=== PATIENT | female | born 1975 | race African-American/Black ===

== ENCOUNTER → 2017-01-07 | Outpatient (CLI) | payer BC ==
[~2017-01-07] MED LIST: REGADENOSON INJ 0.4 MG/5 ML DISP.SYRIN IV ONE
--- NOTE | 2017-01-07 21:00 | DRAGON STRESS TEST REPORT ---
ntravenous Lexiscan Cardiolite stress test using single photon emmision computerized tomography. Date of procedure: Ordering Provider: Indication: Chest pain, abnormal EKG, and preoperative cardiac risk assessment. Coronary risk factors: Age, and family history of coronary artery disease. Resting EKG: Sinus Rhythm. LVH with strain pattern. Possible diffuse ischemia. Stress EKG: No changes of ischemia. The patient had no chest pain or discomfort, and there were no arrhythmias seen. Reason for termination: Protocol. Conclusions: Normal EKG and hemodynamic response to IV Lexiscan. Nuclear data: At rest the patient was 13.54 given millicuries of technetium 99m sestamibi injected intravenously. As per protocol rest non gated SPECT images were obtained. Subsequently the patient was given intravenous Lexiscan at a dose of 0.4 mg in 5 mL intravenously, followed by flush with normal saline. Subsequently the stress dose of 42.7 millicuries of technetium 99m sestamibi was injected intravenously. As per protocol stress gated images were obtained. Nuclear interpretation: Review of images showed that there is bowel contamination artifact. There is a perfusion defect in the stress images which is mild involving the left ventricular apex, and this normalizes in the rest images. There is the basal inferior wall artifact causing a perfusion defect involving the inferior wall which is slightly more pronounced in the rest images compared with the stress images. But cannot exclude mild reversible ischemia of the basal inferior wall. Segments of the myocardium had normal perfusion at rest, and normal perfusion post stress with IV Lexiscan. All segments of the myocardium had normal thickening by gated study. There is probably mild global hypokinesis T. I D. ratio was abnormal at 1.26. Computer read rest, and stress left ventricular ejection fraction were 39 %, and 37 %, respectively. Conclusion: 1. There is mild scintigraphic evidence of Lexiscan induced myocardial ischemia involving the left ventricle apex and the basal inferior wall. 2. There is no scintigraphic evidence of myocardial infarction/scar. 3. Recommend echo for LVEF coorelation. Recommendations: 1.Aggressive medical treatment of coronary artery disease. 2.Cardiac catheterization if the patient continues to have chest pain especially in light of the abnormal EKG and abnormal T I D ratio, 3.Aggressive risk factor modification, and treating the underlying co- morbidities. 4. Recommend echocardiogram for LVEF correlation. [facility]
== END ==
LOC: RAD 07:42
PROVIDERS: ATTEND Specialist
DX: Z01.810 Encounter for preprocedural cardiovascular examination (principal); R07.9 Chest pain, unspecified; R94.31 Abnormal electrocardiogram [ECG] [EKG]
CPT/HCPCS: 93017; 78452; A9500; J2785; Q9969

== ENCOUNTER 2017-03-26 09:03 | Day surgery (SDC) | payer BC ==
[2017-03-24 09:49] LABS: HEMATOCRIT 36.8 % (36.0-47.0); HEMOGLOBIN 11.9 g/dL (12.0-15.5); HGB HCT DIFFERENCE -1.1; MEAN CORPUSCULAR HEMOGLOBIN 27.1 pg (27.0-33.4); MEAN CORPUSCULAR HGB CONC 32.4 g/dL (32.0-36.0); MEAN CORPUSCULAR VOLUME 84 fl (80-97); RED CELL DISTRIBUTION WIDTH 12.7 % (11.5-14.0); WHITE BLOOD COUNT 5.8 10^3/uL (4.0-10.5)
[2017-03-24 10:08] LABS: ANION GAP 12 (5-19); BLOOD UREA NITROGEN 13 mg/dL (7-20); CALCIUM 9.3 mg/dL (8.4-10.2); CARBON DIOXIDE 26 mmol/L (22-30); CHLORIDE 106 mmol/L (98-107); CREATININE RESULT 0.75 mg/dL (0.52-1.25); GLUCOSE 106 mg/dL (75-110); POTASSIUM 4.6 mmol/L (3.6-5.0); SODIUM 143.9 mmol/L (137-145)
--- NOTE | 2017-03-24 13:26 | EKG REPORT ---
SEVERITY:- ABNORMAL ECG - SINUS RHYTHM LVH WITH SECONDARY REPOLARIZATION ABNORMALITY REPOL ABNRM, PROBABLE ISCHEMIA, ANT-LAT LEADS BORDERLINE PROLONGED QT INTERVAL : Confirmed by: Mayur Caraballo MD 24-Mar-2017 13:24:55
[~2017-03-26 09:03] MED LIST changes: +ACETAMINOPHEN 325 MG TABLET PO PRN; +CEFAZOLIN 1 GM/D5W RTU 1 GM/50 ML RTUPB IV PRN; +LACTATED RINGERS 1000 ML IV PRN; +LIDOCAINE 0.5% INJ-PF (5 MG/ML) 50 ML SDV SUBCUT PRN; -REGADENOSON INJ 0.4 MG/5 ML DISP.SYRIN IV ONE
[2017-03-26] MEDS ORDERED: ROCURONIUM BROMIDE INJ 50 MG/5 ML VIAL IV ONE (09:40)
[2017-03-26] MEDS ORDERED: DEXAMETHASONE SOD PHOSPHATE INJ 4 MG/1 ML VIAL ONE (09:40)
[2017-03-26] MEDS ORDERED: GLYCOPYRROLATE INJ 0.4 MG/2 ML VIAL ONE (09:40)
[2017-03-26] MEDS ORDERED: NEOSTIGMINE METHYLSULFATE 10 MG/10 ML VIAL ONE (09:40)
[2017-03-26] MEDS ORDERED: METOCLOPRAMIDE HCL INJ/PF 10 MG/2 ML SDV ONE (09:40)
[2017-03-26] MEDS ORDERED: ONDANSETRON HCL INJ/PF 4 MG/2 ML SDV ONE ×3 (09:40→15:40)
[2017-03-26] MEDS ORDERED: SUCCINYLCHOLINE CHLORIDE INJ 200 MG/10 ML VIAL ONE (09:40)
[2017-03-26] MEDS ORDERED: BUPIVACAINE HCL 0.25 % INJ/PF (2.5 MG/1 ML) 30 ML VIAL ONE (10:26)
[2017-03-26] MEDS ORDERED: MIDAZOLAM 2 MG/2 ML INJ ONE (12:04)
[2017-03-26] MEDS ORDERED: HYDROMORPHONE HCL INJ/PF 2 MG/ML AMPULE ONE ×2 (12:04→16:24)
[2017-03-26] MEDS ORDERED: PROPOFOL INJ 200 MG/20 ML VIAL IV ONE (12:05)
[2017-03-26] MEDS ORDERED: FENTANYL CITRATE INJ/PF 250 MCG/5 ML AMPULE ONE (12:36)
[2017-03-26] MEDS ORDERED: PROMETHAZINE HCL INJ 25 MG/1 ML VIAL IV PRN ×2 (13:12)
[2017-03-26] MEDS ORDERED: FENTANYL CITRATE INJ/PF 100 MCG/2 ML AMPUL IV PRN ×3 (13:12)
[2017-03-26] MEDS ORDERED: OXYCODONE-ACETAMINOPHEN 5-325 MG TABLET PO PRN ×2 (13:12)
[2017-03-26] MEDS ORDERED: MORPHINE SULFATE 10 MG/ML INJ IV PRN (13:12)
[2017-03-26] MEDS ORDERED: MEPERIDINE HCL/PF INJ 25 MG/1 ML DISP.SYRIN IV PRN (13:12)
[2017-03-26] MEDS ORDERED: DIPHENHYDRAMINE HCL 50 MG/ML VIAL IV PRN (13:12)
--- NOTE | 2017-03-26 14:07 | Operative Report ---
Operative Report DATE OF SURGERY: 03/26/17 PREOPERATIVE DIAGNOSIS: Ventral hernia POSTOPERATIVE DIAGNOSIS: Ventral hernia OPERATION: Open ventral hernia repair with mesh SURGEON: MARGE WEEMS ANESTHESIA: GA TISSUE REMOVED OR ALTERED: Hernia sac COMPLICATIONS: None ESTIMATED BLOOD LOSS: minimal INTRAOPERATIVE FINDINGS: Two centimeter fascial defect just above the umbilicus with herniated the preperitoneal fat PROCEDURE: Informed consent was obtained. Patient was brought to the operating room and placed on the operating room table in the supine position. After satisfactory induction of general anesthesia patient's abdomen was prepped and draped in usual sterile fashion. The hernia laid about 2 cm above the umbilicus. A transverse incision was made overlying this region. The hernia sac was large, the size of a golf ball. It was dissected free from the surrounding structures. The hernia sac was opened entering the peritoneal cavity. Hernia sac was markedly thickened with herniated preperitoneal fat and portion of the falciform ligament. The hernia sac was excised and the portion that was formed with the falciform ligament was clamped divided and tied. The hernia sac was then closed with running Vicryl suture. A preperitoneal plane was then created circumferentially. The hernia defect measured just the larger than 2 cm in size. 6.6 cm Covidien composite parietex mesh was used. It was a placed into the preperitoneal space and sutured at 4 quadrants to the overlying fascia using mattressing Prolene sutures. Hemostasis appeared excellent. The mesh laid the flat with excellent coverage. The fascial defect was closed over the mesh using interrupted Ethibond sutures. The space was closed with interrupted Vicryl sutures. Skin was closed with deep dermal interrupted Vicryl sutures followed by running subcuticular Monocryl suture. Marcaine was injected at the operative site. Patient tolerated procedure well with no apparent complications and was taken to the recovery area in stable condition.
[2017-03-26] MEDS ORDERED: RINGERS SOLUTION,LACTATED 1,000 ML IV PRN (14:20)
[2017-03-26] MEDS ORDERED: ONDANSETRON HCL INJ/PF 4 MG/2 ML SDV IV PRN (14:20)
--- NOTE | 2017-03-26 14:20 | PDOC DISCHARGE SUMMARY ---
Discharge Summary (SDC) - Discharge Final Diagnosis: Ventral hernia Date of Surgery: 03/26/17 Discharge Date: 03/26/17 Condition: Good Treatment or Instructions: Open ventral hernia repair with mesh. May discharge patient home when met discharge criteria. Follow-up with me in 2 weeks. Stay active but avoid strenuous activity. May shower in 2 days. Prescriptions: Oxycodone HCl/Acetaminophen [Percocet 5-325 mg Tablet] 1 tab PO ASDIR PRN #25 tablet PRN Reason: Discharge Diet: As Tolerated Discharge Activity: Activity As Tolerated - Stay active but avoid strenuous activity. Report the Following to Your Physician Immediately: Fever over 101 Degrees, Unusual Bleeding, Redness, Drainage-Foul Smelling
[2017-03-26] MEDS: FENTANYL CITRATE INJ/PF 100 MCG/2 ML AMPUL ONE ×2 (14:37→15:05)
[2017-03-26] MEDS ORDERED: KETOROLAC TROMETHAMINE INJ/PF 30 MG/1 ML SDV ONE (16:40)
[2017-03-26] MEDS ORDERED: RINGERS SOLUTION,LACTATED 400 ML IV ONE (17:00)
[2017-03-26] MEDS ORDERED: GLUCAGON,HUMAN RECOMB 1 MG INJ SUBCUT PRN (17:34)
[2017-03-26] MEDS ORDERED: KETOROLAC TROMETHAMINE INJ/PF 30 MG/1 ML SDV IV PRN (17:34)
[2017-03-26] MEDS ORDERED: HYDROMORPHONE HCL INJ/PF 2 MG/ML AMPULE IV PRN (17:34)
[2017-03-26] MEDS ORDERED: DEXTROSE 40% GEL 15 GM TUBE PO PRN ×2 (17:34)
[2017-03-26] MEDS ORDERED: DEXTROSE 50%-WATER 25 GM/50 ML DISP.SYRIN IV PRN ×2 (17:34)
--- NOTE | 2017-03-26 17:41 | PDOC PROGRESS REPORT ---
Subjective Progress Note for:: 03/26/17 Subjective:: Patient had the pain central to the incision site that was difficult to control in the recovery room. However after Dilaudid and Toradol patient feels comfortable. She still has nausea. Physical Exam Vital Signs: Temp Pulse Resp BP Pulse Ox 98.5 F 66 12 129/56 H 97 03/26/17 17:33 03/26/17 17:33 03/26/17 17:33 03/26/17 17:33 03/26/17 17:33 Intake & Output 03/25/17 03/26/17 03/27/17 06:59 06:59 06:59 Intake Total 0 Output Total 0 Balance 0 Weight 90.72 kg 90.72 kg General appearance: PRESENT: no acute distress, cooperative Respiratory exam: PRESENT: clear to auscultation asad Cardiovascular exam: PRESENT: RRR GI/Abdominal exam: PRESENT: other - Soft, nondistended, tender mainly at the mid abdomen around her incision site. Results Laboratory Results: 03/24/17 08:56 03/24/17 08:56 Assessment & Plan - Diagnosis (1) Ventral hernia Is this a current diagnosis for this admission?: YesPlan: Status post open ventral hernia repair with mesh. With difficulty with pain control and postoperative nausea will plan to ring the patient into the hospital for observation overnight. If pain is under the good control and the patient's nausea has resolved, will plan to discharge the patient home in the morning.
[2017-03-26] MEDS ORDERED: PROMETHAZINE HCL INJ 50 MG/1 ML VIAL IM ONE (18:30)
[2017-03-26] MEDS: OXYCODONE-ACETAMINOPHEN 5-325 MG TABLET PO PRN (20:47)
[2017-03-26 21:31] LABS: ABSOLUTE BASOPHILS # (AUTO) 0.1 10^3/uL (0.0-0.2); ABSOLUTE MONOCYTES (AUTO) 0.1 10^3/uL (0.1-1.4); BASOPHILS % (AUTO) 0.5 % (0-2); EOSINOPHILS % (AUTO) 0.1 % (0-6); HEMATOCRIT 36.2 % (36.0-47.0); HEMOGLOBIN 11.8 g/dL (12.0-15.5); HGB HCT DIFFERENCE -0.8; LYMPHOCYTES % (AUTO) 7.8 % (13-45); MEAN CORPUSCULAR HEMOGLOBIN 26.9 pg (27.0-33.4); MEAN CORPUSCULAR HGB CONC 32.5 g/dL (32.0-36.0); MEAN CORPUSCULAR VOLUME 83 fl (80-97); MONOCYTES % (AUTO) 0.8 % (3-13); RED BLOOD COUNT 4.37 10^6/uL (3.72-5.28); RED CELL DISTRIBUTION WIDTH 12.6 % (11.5-14.0); SEGMENTED NEUTROPHILS % (AUTO) 90.8 % (42-78)
[2017-03-26 21:36] LABS: WHITE BLOOD COUNT 12.1 10^3/uL (4.0-10.5)
[2017-03-26] MEDS ORDERED: MAG HYDROX/AL HYDROX/SIMETH SUSP 30 ML UDCUP PO PRN (21:46)
[2017-03-26 21:50] LABS: BLOOD UREA NITROGEN 12 mg/dL (7-20); CALCIUM 9.7 mg/dL (8.4-10.2); CARBON DIOXIDE 26 mmol/L (22-30); CHLORIDE 105 mmol/L (98-107); GLUCOSE 135 mg/dL (75-110); POTASSIUM 4.5 mmol/L (3.6-5.0); SODIUM 143.6 mmol/L (137-145)
[2017-03-26 21:51] LABS: ALANINE AMINOTRANSFERASE 28 U/L (9-52); ALKALINE PHOSPHATASE 83 U/L (38-126); ANION GAP 13 (5-19); ASPARTATE AMINO TRANSFERASE 27 U/L (14-36); BILIRUBIN,DIRECT 0.3 mg/dL (0.0-0.4); BILIRUBIN,TOTAL 0.8 mg/dL (0.2-1.3); CREATINE KINASE 534 U/L (30-135); TOTAL PROTEIN 7.6 g/dL (6.3-8.2)
[2017-03-26] MEDS ORDERED: DEXTROSE 5%-NORMAL SALINE 1,000 ML IV PRN (21:51)
[2017-03-26] MEDS: FAMOTIDINE INJ/PF 20 MG/2 ML SDV IV SCH (21:56)
[2017-03-26] MEDS ORDERED: ASPIRIN 81 MG TABLET, ENT COATED PO SCH (22:00)
[2017-03-26 22:02] LABS: CREATINE KINASE MB 1.97 ng/mL (<4.55)
[2017-03-26 22:03] LABS: TROPONIN I < 0.012 ng/mL
--- NOTE | 2017-03-26 22:16 | PDOC CONSULTATION ---
Consultation Consult Date: 03/26/17 Attending physician:: LOPEZ NAVARRO Consult reason:: CHEST PAIN History of Present Illness Admission Date/PCP: LOPEZ MINAYA PA-C Patient complains of: CHEST PAIN History of Present Illness: SWATI HENLEY is a 41 year old -[place] female with basically an unremarkable past medical history, other than mild esophageal reflux disease, status post open ventral hernia repair earlier today by Dr. Diaz. Initial plans were for the patient to be discharged home. However, postoperative pain control became an issue and patient was placed under outpatient observation admission service by Dr. Diaz. Patient experienced approximately 30 minute episode of left-sided chest "tightness" postoperatively while at rest, shortly after being transferred from postanesthesia care unit to the floor. No radiation of the pain. Has had prior such episodes. Nothing made the pain increase. Mild associated nausea but no sweating or shortness of breath. Pain resolved spontaneously prior to my seeing her and has not recurred. Patient had similar such pain earlier this year and underwent an abnormal stress test in December of this year, with recommendations for aggressive risk factor modification, along with cardiac catheterization if continued to have chest pain. She subsequently underwent a negative heart catheterization February 18 at [facility]. Negative personal cardiac history, with no previous myocardial infarction, congestive heart failure or hypertension. No history of pulmonary embolus or DVT. No recent long trip with prolonged inactivity, or unusual lower extremity swelling or tenderness. Negative family history of coronary artery disease. No use of alcohol tobacco or illicit drugs. Patient has been discussed with patient's floor nurse. She is currently resting quietly, chest pain-free. Laboratory results are listed in [facility] and are reviewed, with repeat results pending. X-ray summary results are listed below, with full report(s) reviewed. . EKG's reviewed. And compared to prior tracing from the second of this month Social history/personal habits: . 5 children. Works as a certified personal trainer. Personal habits as noted above. Allergies/adverse reactions NKDA. Home medications none REVIEW OF SYSTEMS: Constitutional: No fever or chills. Eyes: Wears glasses. No current vision complaints. ENT: No swallowing problems or complaints. No hearing problems or complaints. Pulmonary: No current complaints. Cardiovascular: See history and present illness. Gastrointestinal: See history and present illness. Skin: No current complaints, including rashes. Hematologic: No unusual easy bruising or bleeding. Neurologic: No current complaints, including numbness or tingling. Musculoskeletal: No current complaints, including painful joints. Psychiatric: No current complaints, including anxiety or depression. Endocrine: No current complaints, including polyuria. Genitourinary: No current complaints, including dysuria. PHYSICAL EXAMINATION: 5 feet 11 inches tall. 90.7 kg. BMI 27.9 kg/m.Temperature 98.5. Pulse 71 and regular. Blood pressure 143/67. Respirations are 12 and unlabored. 97% saturation on room air. Slightly overweight otherwise well-nourished well-developed -[place] female appearing approximately her stated age. Pleasant awake alert and cooperative. Mildly anxious, but no agitation. is present at her side; patient approves. Patient's floor nurse Suzanne is present. Skin is warm and dry. No grossly obvious evidence of rash in areas of skin examined. No subcutaneous nodules palpated. ENT: Hearing grossly normal to normal conversation. Tongue midline on protrusion pink and slightly tacky. Eyes: No scleral icterus. Pupils equal and reactive to light at 4 mm. [place] conjunctivae. Neck is supple and nontender to gentle active range of motion and palpation. Midline trachea. No palpable thyroid nodule mass enlargement or tenderness. Lymphatic: No palpable cervical or clavicular nodes. Neck and lymphatic exams limited by patient body habitus. Psychiatric: Reasonable insight into acute and chronic medical issues. Oriented to time location and why here. Lungs: Auscultation reveals clear and equal breath sounds bilaterally. No use of accessory respiratory muscles. Cardiovascular: Heart regular rate and rhythm, without gallop murmur or rub. No carotid or abdominal aortic bruits. Difficult to evaluate for ankle or pedal edema, with ACE hose in place. palpable dorsalis pedis pulses. Abdomen:soft, with positive bowel sounds. Clean dry and intact supraumbilical dressing is in place. This is left in place. Extremities: Feet are warm and dry. No calf tenderness to compression. No grossly obvious visual evidence of calf swelling, although again examination is limited due to the ACE hose in place. Gentle manipulation of lower extremities fails to reveal any obvious evidence of injury or instability to knees hips or ankles. Neurologic: Moves upper extremities grossly normally. Patellar reflexes absent. Absent Babinski. Light touch is intact at toes. Dorsiflexion and plantarflexion of feet 5 / 5 and symmetric. Past Medical History Cardiac Medical History: Denies: Congestive Heart Failure, Coronary Artery Disease, DVT, Myocardial Infarction, Hyperlipidema, Hypertension, Pulmonary Embolism Pulmonary Medical History: Denies: Asthma, Bronchitis, Chronic Obstructive Pulmonary Disease (COPD), Pneumonia, Sleep Apnea EENT Medical History: Reports: Eyes - Glasses Denies: Ears, Throat Neurological Medical History: Denies: Hemorrhagic CVA, Ischemic CVA, Seizures Endocrine Medical History: Denies: Diabetes Mellitus Type 1, Diabetes Mellitus Type 2, Hyperthyroidism, Hypothyroidism Renal/ Medical History: Reports: None GI Medical History: Reports: Gastroesophageal Reflux Disease Denies: Cirrhosis, Hepatitis, Peptic Ulcer Disease Musculoskeltal Medical History: Denies: Arthritis Skin Medical History: Reports: None Psychiatric Medical History: Denies: Alcohol Dependency, Depression, General Anxiety Disorder, Substance Abuse, Tobacco Dependency Hematology: Denies: Anemia Infectious Medical History: Denies: Clostridium Difficile, Hepatitis B, Hepatitis C, Methicillin- Resistant Staph Aureus Past Surgical History Past Surgical History: Reports: Herniorrhaphy - Ventral hernia repair, 2016 Social History Information Source: Patient, [facility] Records - And patient's floor nurse Lives with: Spouse/Significant other Smoking Status: Never Smoker Frequency of Alcohol Use: None Drugs: None - Advance Directive Resuscitation Status: Full Code Surrogate healthcare decision maker:: Family History Family History: Reviewed & Not Pertinent Parental Family History Reviewed: Yes - father with vertigo. Mother with multiple health problems. Children Family History Reviewed: Yes - Healthy Sibling(s) Family History Reviewed.: Yes - Diabetic Medication/Allergy Home Medications: No Home Medications 03/26/17 Allergies/Adverse Reactions: No Known Allergies Allergy (Verified 03/26/17 09:14) Physical Exam Vital Signs: Temp Pulse Resp BP Pulse Ox 98.5 F 71 12 143/67 H 97 03/26/17 18:28 03/26/17 18:28 03/26/17 18:28 03/26/17 18:28 03/26/17 18:28 Intake & Output 03/25/17 03/26/17 03/27/17 00:59 00:59 00:59 Intake Total 6700 Output Total 215 Balance 6485 Weight 90.72 kg 90.72 kg Results Laboratory Results: 03/26/17 21:05 03/26/17 21:05 WBC 12.1 H D RBC 4.37 Hgb 11.8 L Hct 36.2 MCV 83 MCH 26.9 L MCHC 32.5 RDW 12.6 Plt Count 217 Seg Neutrophils % 90.8 H Lymphocytes % 7.8 L Monocytes % 0.8 L Eosinophils % 0.1 Basophils % 0.5 Absolute Neutrophils 11.0 H Absolute Lymphocytes 1.0 Absolute Monocytes 0.1 Absolute Eosinophils 0.0 Absolute Basophils 0.1 Impressions: Chest X-Ray 03/26/17 00:00 IMPRESSION: NO ACUTE RADIOGRAPHIC FINDING IN THE CHEST. Assessment & Plan - Diagnosis (1) DVT prophylaxis Is this a current diagnosis for this admission?: YesPlan: Mechanical prophylaxis in place from surgeons. Discussed with on-call surgicalist, Dr. Navarro, who agrees with my plans for prophylactic subcutaneous Lovenox. (2) History of ventral hernia repair Is this a current diagnosis for this admission?: Yes (3) Abnormal EKG Is this a current diagnosis for this admission?: YesPlan: Stable from March 2. Repeat in the morning. (4) Chest pain Qualifiers: Chest pain type: unspecified Qualified Code(s): R07.9 - Chest pain, unspecified Is this a current diagnosis for this admission?: YesPlan: Likely not significant, but will proceed with chest pain protocol. Patient understands to notify staff should chest pain recur. Serial troponin's . Repeat EKG. lipid panel. Cath report requested from [facility]. Impression and plans were discussed with patient, , and sales commissions analyst surgicalist, all of whom concur. Time spent in evaluation and management of patient: 63 minutes.
[2017-03-26] MEDS ORDERED: ASPIRIN 81 MG TABLET, ENT COATED PO ONE (22:30)
[2017-03-27] MEDS: OXYCODONE-ACETAMINOPHEN 5-325 MG TABLET PO PRN ×4 (00:55→13:32)
[2017-03-27] MEDS ORDERED: LANSOPRAZOLE 30 MG TAB.RAP.DR PO SCH (06:00)
[2017-03-27 07:50] LABS: CHOLESTEROL 188.09 mg/dL (0-200); Direct HDL 39 mg/dL (>40); TRIGLYCERIDES 66 mg/dL (<150)
[2017-03-27 08:01] LABS: DIRECT LDL 142 mg/dL (<100)
--- NOTE | 2017-03-27 08:14 | EKG REPORT ---
SEVERITY:- ABNORMAL ECG - SINUS RHYTHM LVH WITH SECONDARY REPOLARIZATION ABNORMALITY REPOL ABNRM, PROBABLE ISCHEMIA, ANT-LAT LEADS : Confirmed by: Mayur Caraballo MD 27-Mar-2017 08:12:49
--- NOTE | 2017-03-27 08:14 | EKG REPORT ---
SEVERITY:- ABNORMAL ECG - SINUS RHYTHM LVH WITH SECONDARY REPOLARIZATION ABNORMALITY REPOL ABNRM, PROBABLE ISCHEMIA, DIFFUSE LEADS : Confirmed by: Mayur Caraballo MD 27-Mar-2017 08:13:09
--- NOTE | 2017-03-27 08:14 | EKG REPORT ---
SEVERITY:- ABNORMAL ECG - SINUS RHYTHM LVH WITH SECONDARY REPOLARIZATION ABNORMALITY ST DEPRESSION, CONSIDER ISCHEMIA, ANT-LAT LDS : Confirmed by: Mayur Caraballo MD 27-Mar-2017 08:12:59
[2017-03-27] MEDS: FAMOTIDINE INJ/PF 20 MG/2 ML SDV IV SCH (09:07)
--- NOTE | 2017-03-27 09:46 | PDOC PROGRESS REPORT ---
Subjective Progress Note for:: 03/27/17 Subjective:: Feels much better today. Abdominal pain is mild. She has had no further episode of left-sided chest pain that she experienced last night. She is hungry. Physical Exam Vital Signs: Temp Pulse Resp BP Pulse Ox 97.4 F 58 L 18 132/68 H 100 03/27/17 07:54 03/27/17 07:54 03/27/17 07:54 03/27/17 07:54 03/27/17 07:54 Intake & Output 03/26/17 03/27/17 03/28/17 06:59 06:59 06:59 Intake Total 8020 Output Total 215 Balance 7805 Weight 90.2 kg General appearance: PRESENT: no acute distress, cooperative Respiratory exam: PRESENT: clear to auscultation asad Cardiovascular exam: PRESENT: RRR GI/Abdominal exam: PRESENT: other - Soft, nondistended, minimal tenderness. Results Laboratory Results: 03/26/17 21:05 03/26/17 21:05 03/26/17 03/26/17 03/27/17 21:05 21:05 07:03 WBC 12.1 H D RBC 4.37 Hgb 11.8 L Hct 36.2 MCV 83 MCH 26.9 L MCHC 32.5 RDW 12.6 Plt Count 217 Seg Neutrophils % 90.8 H Lymphocytes % 7.8 L Monocytes % 0.8 L Eosinophils % 0.1 Basophils % 0.5 Absolute Neutrophils 11.0 H Absolute Lymphocytes 1.0 Absolute Monocytes 0.1 Absolute Eosinophils 0.0 Absolute Basophils 0.1 Sodium 143.6 Potassium 4.5 Chloride 105 Carbon Dioxide 26 Anion Gap 13 BUN 12 Creatinine 0.80 Est GFR ( Amer) > 60 Est GFR (Non-Af Amer) > 60 Glucose 135 H Calcium 9.7 Total Bilirubin 0.8 AST 27 ALT 28 Alkaline Phosphatase 83 Total Protein 7.6 Albumin 4.0 Triglycerides 66 Cholesterol 188.09 LDL Cholesterol Direct 142 H VLDL Cholesterol 13.0 HDL Cholesterol 39 L 03/26/17 03/26/17 03/27/17 21:05 21:05 02:13 Creatine Kinase 534 H CK-MB (CK-2) 1.97 Troponin I < 0.012 < 0.012 03/27/17 07:03 Creatine Kinase CK-MB (CK-2) Troponin I < 0.012 Impressions: Chest X-Ray 03/26/17 00:00 IMPRESSION: NO ACUTE RADIOGRAPHIC FINDING IN THE CHEST. Assessment & Plan - Diagnosis (1) Ventral hernia Is this a current diagnosis for this admission?: Yes (2) History of ventral hernia repair Is this a current diagnosis for this admission?: YesPlan: Patient doing much better this morning with good pain control. Exam looks very good. Pending completion of cardiac workup for her chest pain from last night. Her cardiac enzymes are negative. Will discharge patient home when cardiology has cleared her.
[2017-03-27] MEDS ORDERED: ENOXAPARIN SODIUM INJ 40 MG/0.4 ML DISP.SYRIN SUBCUT SCH (10:00)
[2017-03-27] MEDS ORDERED: DOCUSATE SODIUM 100 MG CAPSULE PO SCH (10:00)
--- NOTE | 2017-03-27 10:29 | PDOC PROGRESS REPORT ---
Subjective Progress Note for:: 03/27/17 Subjective:: The patient was seen earlier today on rounds. Abdominal pain is much better controlled. The patient denies any nausea, vomiting, diarrhea, shortness of breath, dizziness, chest pain, heart palpitations, fevers, or chills. The patient has remained afebrile. Blood pressures have been in a good range. When prompted the patient voices no other concerns at this time. Review of systems: The rest of the review of systems is negative. Physical Exam Vital Signs: Temp Pulse Resp BP Pulse Ox 97.4 F 58 L 18 132/68 H 100 03/27/17 07:54 03/27/17 07:54 03/27/17 07:54 03/27/17 07:54 03/27/17 07:54 Intake & Output 03/25/17 03/26/17 03/27/17 23:59 23:59 23:59 Intake Total 6820 1400 Output Total 215 Balance 6605 1400 Weight 90.72 kg 90.2 kg General appearance: PRESENT: no acute distress, cooperative, well-developed, well-nourished Head exam: PRESENT: atraumatic, normocephalic Eye exam: PRESENT: conjunctiva pink, EOMI, PERRLA. ABSENT: scleral icterus Ear exam: PRESENT: normal external ear exam Mouth exam: PRESENT: moist, tongue midline Neck exam: ABSENT: carotid bruit, JVD, lymphadenopathy, thyromegaly Respiratory exam: PRESENT: clear to auscultation asad. ABSENT: rales, rhonchi, wheezes Cardiovascular exam: PRESENT: RRR. ABSENT: diastolic murmur, rubs, systolic murmur Pulses: PRESENT: normal dorsalis pedis pul Vascular exam: PRESENT: normal capillary refill GI/Abdominal exam: PRESENT: other - Postsurgical Rectal exam: PRESENT: deferred Extremities exam: PRESENT: full ROM. ABSENT: calf tenderness, clubbing, pedal edema Neurological exam: PRESENT: alert, awake, oriented to person, oriented to place , oriented to time, oriented to situation, CN II-XII grossly intact. ABSENT: motor sensory deficit Psychiatric exam: PRESENT: appropriate affect, normal mood. ABSENT: homicidal ideation, suicidal ideation Skin exam: PRESENT: dry, intact, warm. ABSENT: cyanosis, rash Results Laboratory Results: 03/26/17 21:05 03/26/17 21:05 03/26/17 03/26/17 03/27/17 21:05 21:05 07:03 WBC 12.1 H D RBC 4.37 Hgb 11.8 L Hct 36.2 MCV 83 MCH 26.9 L MCHC 32.5 RDW 12.6 Plt Count 217 Seg Neutrophils % 90.8 H Lymphocytes % 7.8 L Monocytes % 0.8 L Eosinophils % 0.1 Basophils % 0.5 Absolute Neutrophils 11.0 H Absolute Lymphocytes 1.0 Absolute Monocytes 0.1 Absolute Eosinophils 0.0 Absolute Basophils 0.1 Sodium 143.6 Potassium 4.5 Chloride 105 Carbon Dioxide 26 Anion Gap 13 BUN 12 Creatinine 0.80 Est GFR ( Amer) > 60 Est GFR (Non-Af Amer) > 60 Glucose 135 H Calcium 9.7 Total Bilirubin 0.8 AST 27 ALT 28 Alkaline Phosphatase 83 Total Protein 7.6 Albumin 4.0 Triglycerides 66 Cholesterol 188.09 LDL Cholesterol Direct 142 H VLDL Cholesterol 13.0 HDL Cholesterol 39 L 03/26/17 03/26/17 03/27/17 21:05 21:05 02:13 Creatine Kinase 534 H CK-MB (CK-2) 1.97 Troponin I < 0.012 < 0.012 03/27/17 07:03 Creatine Kinase CK-MB (CK-2) Troponin I < 0.012 Impressions: Chest X-Ray 03/26/17 00:00 IMPRESSION: NO ACUTE RADIOGRAPHIC FINDING IN THE CHEST. Assessment & Plan - Diagnosis (1) Chest pain Qualifiers: Chest pain type: unspecified Qualified Code(s): R07.9 - Chest pain, unspecified Is this a current diagnosis for this admission?: YesPlan: The patient was observed in a continues telemetry unit, serial cardiac enzymes were obtained which were nonsuggestive. The patient's EKG revealed no acute changes and the patient had no events on playground monitor. Patient had no further replication of symptoms. Patient has had a normal heart catheterization in the past 60 days. Case was discussed by the surgicalist with the patient's sterile processing manager. The patient is clear for discharge from a hospitalist perspective. (2) DVT prophylaxis Is this a current diagnosis for this admission?: Yes (3) History of ventral hernia repair Is this a current diagnosis for this admission?: YesPlan: Management as per surgery - Time Time Spent with patient: 25-34 minutes Medications reviewed and adjusted accordingly: Yes Anticipated discharge: Home Disposition: The patient can be discharged from a hospitalist perspective. Will sign off on the patient at this time. Have discussed the case with the surgicalist. And as always the hospitalists would like to thank the surgicalist for allowing us to participate in the care of this patient
[2017-03-27 12:11] LABS: APPEARANCE,URINE CLEAR; BILIRUBIN,URINE NEGATIVE (NEGATIVE); GLUCOSE, URINE NEGATIVE (NEGATIVE); KETONES,URINE NEGATIVE (NEGATIVE); LEUKOCYTE ESTERASE,URINE TRACE (NEGATIVE); NITRITE,URINE NEGATIVE (NEGATIVE); PROTEIN,URINE NEGATIVE (NEGATIVE); URINE SPECIFIC GRAVITY 1.005; UROBILINOGEN,URINE NEGATIVE mg/dL (<2.0)
[2017-03-27 13:43] VITALS: BP 118/59
== END 2017-03-27 15:58 | disposition home or self-care (01) ==
LOC: OROUT 09:03 → 4N 19:11 → OROUT 03-27 15:58
PROVIDERS: ATTEND Surgery
PROC: 0WUF0JZ Supplement Abdominal Wall with Synthetic Substitute, Open Approach (ICD-10-PCS; principal; 2017-03-26 11:00)
DX: K43.9 Ventral hernia without obstruction or gangrene (principal); R07.89 Other chest pain; T81.89XA Other complications of procedures, not elsewhere classified, initial encounter; Y83.8 Other surgical procedures as the cause of abnormal reaction of the patient, or of later complication, without mention of misadventure at the time of the procedure; Y92.530 Ambulatory surgery center as the place of occurrence of the external cause; K21.9 Gastro-esophageal reflux disease without esophagitis; R94.31 Abnormal electrocardiogram [ECG] [EKG]
CPT/HCPCS: 93005 ×3; 36415 ×2; 82553; 82550; 85025; 85027; 81025; 80048; 80053; 81001; 84484; 85379; 80061; 88302 ×2; 71010; 94799; 93010 ×3; 49560; 49568; C1781; J2250; J0690; J3490 ×2; J1100; J3010 ×2; J1885; J2765; J1650; J1170; J2550; J0330; J2405 ×2; J7120; J2704; S0028 ×2; 752

== ENCOUNTER → 2017-04-27 | Outpatient (CLI) | payer BC ==
[2017-04-27 14:45] LABS: ABSOLUTE EOSINOPHILS # (AUTO) 0.1 10^3/uL (0.0-0.6); ABSOLUTE LYMPHOCYTES (AUTO) 2.7 10^3/uL (0.5-4.7); ABSOLUTE MONOCYTES (AUTO) 0.6 10^3/uL (0.1-1.4); ABSOLUTE NEUT (AUTO) 2.9 10^3/uL (1.7-8.2); BASOPHILS % (AUTO) 0.6 % (0-2); EOSINOPHILS % (AUTO) 1.7 % (0-6); HEMATOCRIT 39.2 % (36.0-47.0); HEMOGLOBIN 12.7 g/dL (12.0-15.5); HGB HCT DIFFERENCE -1.1; LYMPHOCYTES % (AUTO) 42.2 % (13-45); MEAN CORPUSCULAR HEMOGLOBIN 26.9 pg (27.0-33.4); MEAN CORPUSCULAR HGB CONC 32.5 g/dL (32.0-36.0); MEAN CORPUSCULAR VOLUME 83 fl (80-97); MONOCYTES % (AUTO) 9.8 % (3-13); RED BLOOD COUNT 4.73 10^6/uL (3.72-5.28); RED CELL DISTRIBUTION WIDTH 12.8 % (11.5-14.0); SEGMENTED NEUTROPHILS % (AUTO) 45.7 % (42-78); WHITE BLOOD COUNT 6.3 10^3/uL (4.0-10.5)
[2017-04-27 15:05] LABS: ANION GAP 14 (5-19); BLOOD UREA NITROGEN 11 mg/dL (7-20); CALCIUM 9.9 mg/dL (8.4-10.2); CARBON DIOXIDE 21 mmol/L (22-30); CHLORIDE 106 mmol/L (98-107); GLUCOSE 99 mg/dL (75-110); POTASSIUM 4.7 mmol/L (3.6-5.0)
== END ==
LOC: OD 14:04
PROVIDERS: ATTEND Surgery
DX: R10.9 Unspecified abdominal pain (principal)
CPT/HCPCS: 36415; 80048; 85025

== ENCOUNTER → 2017-04-30 | Outpatient (CLI) | payer BC ==
--- NOTE | 2017-04-30 09:15 | RADIOLOGY REPORT (SQ) ---
EXAM DESCRIPTION: CT ABDOMEN WITH IV ORAL CONT COMPLETED DATE/TIME: 04/30/2017 8:16 am REASON FOR STUDY: UNSPECIFIED ABD PAIN (R10.9) R10.9 UNSPECIFIED ABDOMINAL PAIN COMPARISON: None. TECHNIQUE: CT scan of the abdomen performed with intravenous and with oral contrast using helical sc anning technique with dynamic intravenous contrast injection. Images reviewed with lung, soft tissue, and bone windows. Reconstructed coronal and sagittal MPR images reviewed. Delayed images for evaluat ion of the urinary system also acquired and evaluated. All images stored on PACS. All CT scanners at this facility use dose modulation, iterative reconstruc tion, and/or weight based dosing when appropriate to reduce radiation dose to as low as reasonably ac hievable (ALARA). [facility]: Dose Right [facility]: CareDose [facility]: Dose Right [facility]: Teradose 4D [facility]: InLive Interactive CONTRAST TYPE AND DOSE: 98mL Isovue 370- low osmolar. RENAL FUNCTION: None required. The patient is less than 50 years old. RADIATION DOSE: 18.96 mGy. LIMITATIONS: None. FINDINGS: LOWER CHEST: No significant findings. No nodules or infiltrates. LIVER: Normal size. No masses or dilated ducts. There is mild fatty infiltration of the liver. SPLEEN: Normal size. No focal lesions. PANCREAS: No masses. No significant calcifications. No adjacent inflammation or peripancreatic fluid collections. Pancreatic duct not dilated. GALLBLADDER: No identified stones by CT criteria. No inflammatory changes to suggest cholecystitis. ADRENAL GLANDS: No significant masses or asymmetry. RIGHT KIDNEY AND URETER: No solid masses. No significant calcifications. No hydronephrosis or hyd roureter. LEFT KIDNEY AND URETER: No solid masses. No significant calcifications. No hydronephrosis or hydr oureter. AORTA AND VESSELS: No aneurysm. No dissection. Renal arteries, SMA, celiac without stenosis. RETROPERITONEUM: No retroperitoneal adenopathy, hemorrhage or masses. BOWEL AND PERITONEAL CAVITY: No masses or inflammatory changes. No free fluid or peritoneal masses. APPENDIX: Not identified ABDOMINAL WALL: There is increased soft tissue density at the level of the umbilicus with some minima l edematous or inflammatory changes in the adjacent subcutaneous fat. A small fluid collection is id entified in the abdominal wall adjacent to the umbilicus measuring 4.2 x 1.3 cm in diameter which may only be related to postsurgical changes however the possibility of an infectious process should be c onsidered. BONES: No significant or acute findings. OTHER: No other significant finding. IMPRESSION: Increased soft tissue density at the level of the umbilicus with some minimal edematous or inflammatory changes in the adjacent subcutaneous fat. A small fluid collection is identified in the abdominal wall adjacent to the umbilicus as noted above. While this may only be related to posts urgical changes, the possibility of an infectious process should be considered. Clinical correlation is recommended. Other findings as noted above TECHNICAL DOCUMENTATION: JOB ID: [id number] Quality ID # [id number]: Final reports with documentation of one or more dose reduction techniques (e.g., Au tomated exposure control, adjustment of the mA and/or kV according to patient size, use of iterative reconstruction technique) 2010 [employer]- All Rights Reserved
== END ==
LOC: RAD 07:31
PROVIDERS: ATTEND Surgery
DX: R10.9 Unspecified abdominal pain (principal)
CPT/HCPCS: 74160

== ENCOUNTER → 2018-11-02 | Outpatient (CLI) | payer BC ==
--- NOTE | 2018-11-02 21:10 | XCELERA REPORT ---
[address] [address] Transthoracic Echocardiogram Report Name: SWATI HENLEY Age: 42 yrs Gender: Female : 1975 Patient Status: Preadmit Patient Location: RAD Study Date: 11/02/2018 03:36 PM Procedure: A two-dimensional transthoracic echocardiogram with color flow and Doppler was performed. The study was technically limited with all images being suboptimal in quality. Reason For Study: CP History: Chest pain. Ordering Physician: FANTA COLON Performed By: Kiersten Celeste Interpretation Summary The left ventricle is normal in size. There is mild to moderate concentric left ventricular hypertrophy. LV EF is > than 65% Left ventricular systolic function is normal. Doppler measurements suggest normal left ventricular diastolic function The left ventricular wall motion is normal. There is no thrombus. The right ventricle is normal in size and function. The right atrium is normal. The left atrial size is normal. There is no evidence of mitral valve prolapse. There is no vegetation seen on the mitral valve. There is no mitral valve stenosis. There is a trace amount of mitral regurgitation There is no aortic valvular vegetation. There is no aortic valve stenosis There is no LVOT obstruction. No aortic regurgitation is present. There is no tricuspid stenosis. No tricuspid regurgitation. Unable to calculate RVSP due lack of TR jet. There is no pulmonic valvular stenosis. There is no pulmonic valvular regurgitation. There is no pericardial effusion. MMode/2D Measurements & Calculations RVDd: 2.8 cm LVIDd: 4.9 cm FS: 41.2 % Ao root diam: 2.8 cm IVSd: 1.3 cm LVIDs: 2.9 cm EDV(Teich): 114.6 ml Ao root area: 6.3 cm2 LVPWd: 1.1 cm ESV(Teich): 32.2 ml EF(Teich): 71.9 % Doppler Measurements & Calculations MV E max jaden: MV dec slope: Ao V2 max: LV V1 max P.6 cm/sec 137.8 cm/sec 8.7 mmHg MV A max jaden: 353.2 cm/sec2 Ao max PG: LV V1 max: 49.7 cm/sec MV dec time: 0.15 sec7.6 mmHg 147.7 cm/sec MV E/A: 1.0 PA V2 max: 123.0 cm/sec PA max P.1 mmHg Left Ventricle The left ventricle is normal in size. There is mild to moderate concentric left ventricular hypertrophy. LV EF is > than 65%. Left ventricular systolic function is normal. Doppler measurements suggest normal left ventricular diastolic function. The left ventricular wall motion is normal. There is no thrombus. Right Ventricle The right ventricle is normal in size and function. Atria The right atrium is normal. The left atrial size is normal. Mitral Valve There is no evidence of mitral valve prolapse. There is no vegetation seen on the mitral valve. There is no mitral valve stenosis. There is a trace amount of mitral regurgitation. Aortic Valve There is no aortic valvular vegetation. There is no aortic valve stenosis. There is no LVOT obstruction. No aortic regurgitation is present. Tricuspid Valve There is no tricuspid stenosis. No tricuspid regurgitation. Unable to calculate RVSP due lack of TR jet. Pulmonic Valve There is no pulmonic valvular stenosis. There is no pulmonic valvular regurgitation. Great Vessels The aortic root is normal size. Effusions There is no pericardial effusion. : FANTA COLON > Fanta Colon
== END ==
LOC: RAD 15:49
PROVIDERS: ATTEND Specialist
DX: R07.9 Chest pain, unspecified (principal)
CPT/HCPCS: 93306

== ENCOUNTER → 2018-11-03 | Outpatient (CLI) | payer BC ==
[~2018-11-03] MED LIST changes: -ACETAMINOPHEN 325 MG TABLET PO PRN; -CEFAZOLIN 1 GM/D5W RTU 1 GM/50 ML RTUPB IV PRN; -LACTATED RINGERS 1000 ML IV PRN; -LIDOCAINE 0.5% INJ-PF (5 MG/ML) 50 ML SDV SUBCUT PRN; +REGADENOSON INJ 0.4 MG/5 ML DISP.SYRIN IV ONE
--- NOTE | 2018-11-05 20:40 | DRAGON STRESS TEST REPORT ---
Intravenous Lexiscan Cardiolite stress test using single photon emmision computerized tomography. Date of procedure: 11/03/2018 Ordering Provider: Dr. Fanta Villalobos. Patient's status: Out Patient. Indication: Abnormal EKG:. Coronary risk factors: Age. Resting EKG: Sinus Rhythm. LVH with strain pattern. Cannot exclude diffuse ischemia secondary to T wave inversion diffusely. Stress EKG:[ No changes of ischemia. Reason for termination: Protocol. Conclusions: Normal EKG and hemodynamic response to IV Lexiscan. Nuclear data: At rest the patient was given 15.63 millicuries of technetium 99m sestamibi injected intravenously. As per protocol rest non gated SPECT images were obtained. Subsequently the patient was given intravenous Lexiscan at a dose of 0.4 mg in 5 mL intravenously, followed by flush with normal saline. Subsequently the stress dose of 38.9 millicuries of technetium 99m sestamibi was injected intravenously. As per protocol stress gated images were obtained. Nuclear interpretation: Review of images showed that all segments of the myocardium had normal perfusion at rest, and normal perfusion post stress with IV Lexiscan. All segments of the myocardium had normal motion, contraction, and thickening by gated study. T. I D. ratio was abnormal at 1.26. Visually the T I D ratio is normal. There is no transient ischemic calcification of the left ventricle. Computer read rest, and stress left ventricular ejection fraction were 49 %, and %, 43 respectively. Visually both the stress and rest ejection fractions were normal , and greater than 55%. Conclusion: 1. There is no scintigraphic evidence of Lexiscan induced myocardial ischemia. 2. There is no scintigraphic evidence of myocardial infarction/scar. Recommendations: 1. Check echo cardiogram for LV ejection fraction correlation. 2.Aggressive risk factor modification, and treating the underlying co- morbidities. [facility]
== END ==
LOC: RAD 07:55
PROVIDERS: ATTEND Specialist
DX: R07.9 Chest pain, unspecified (principal)
CPT/HCPCS: 93017; 78452; A9500; J2785; Q9969

== ENCOUNTER 2019-06-01 19:44 | Emergency (ER) | payer OTHER, BC ==
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
[2019-06-01 21:14] LABS: APPEARANCE,URINE SLIGHTLY-CLOUDY; BILIRUBIN,URINE NEGATIVE (NEGATIVE); COLOR,URINE YELLOW; GLUCOSE, URINE NEGATIVE (NEGATIVE); KETONES,URINE NEGATIVE (NEGATIVE); LEUKOCYTE ESTERASE,URINE TRACE (NEGATIVE); NITRITE,URINE NEGATIVE (NEGATIVE); PROTEIN,URINE NEGATIVE (NEGATIVE); URINE SPECIFIC GRAVITY 1.018; UROBILINOGEN,URINE NEGATIVE mg/dL (<2.0)
[2019-06-01] MEDS ORDERED: ONDANSETRON HCL INJ/PF 4 MG/2 ML SDV IV ONE (22:05)
[2019-06-01] MEDS ORDERED: HYDROMORPHONE HCL INJ/PF 2 MG/ML AMPULE IV ONE (22:05)
[2019-06-01] MEDS ORDERED: LORAZEPAM INJ 2 MG/1 ML VIAL IV ONE (22:05)
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
[2019-06-01] MEDS ORDERED: KETOROLAC TROMETHAMINE INJ/PF 30 MG/1 ML SDV IV ONE (23:24)
[2019-06-02] MEDS ORDERED: ONDANSETRON HCL INJ/PF 4 MG/2 ML SDV IV ONE (00:15)
[2019-06-02 00:33] VITALS: BP 114/66
[2019-06-02] MEDS ORDERED: METOCLOPRAMIDE HCL INJ/PF 10 MG/2 ML SDV IM ONE (00:51)
[2019-06-02] MEDS ORDERED: ONDANSETRON ODT 4 MG TAB (6 TAB/ER DISP) PO PRN (00:51)
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
== END 2019-06-02 01:10 | disposition home or self-care (01) ==
LOC: ER 19:44
DX: G89.29 Other chronic pain (principal); M54.9 Dorsalgia, unspecified
CPT/HCPCS: 96376; 99284; 96374; 96375; 81025; 81001; 72148; J1885; J2765; J1170; J2060; J2405 ×2

== ENCOUNTER 2019-09-01 18:53 | Emergency (ER) | payer BC, OTHER ==
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
[2019-09-01 19:34] LABS: APPEARANCE,URINE CLEAR; BILIRUBIN,URINE NEGATIVE (NEGATIVE); COLOR,URINE YELLOW; GLUCOSE, URINE NEGATIVE (NEGATIVE); KETONES,URINE NEGATIVE (NEGATIVE); LEUKOCYTE ESTERASE,URINE NEGATIVE (NEGATIVE); NITRITE,URINE NEGATIVE (NEGATIVE); PROTEIN,URINE NEGATIVE (NEGATIVE); URINE SPECIFIC GRAVITY 1.028
[2019-09-01] MEDS ORDERED: KETOROLAC TROMETHAMINE 60 MG/2 ML SDV IM ONE (21:02)
--- NOTE | 2019-09-01 21:36 | RADIOLOGY REPORT (SQ) ---
CT ABDOMEN PELVIS WITHOUT IV CONTRAST EXAM DATE: 09/01/2019 9:00 PM CDT HISTORY: Right flank pain. COMPARISON: 04/30/2017 TECHNIQUE: CT scan of the abdomen and pelvis was performed without IV contrast. This exam was performed according to our departmental dose-optimization program, which includes automated exposure control, adjustment of the mA and/or kV according to patient size and/or use of iterative reconstruction technique. FINDINGS: The lung bases are clear. No pleural or pericardial effusions. No hiatal hernia. There is a 6 mm stone in the region of the proximal right ureter with mild right-sided inflammatory changes. No definite hydronephrosis. There is a 3.8 cm right ovarian cystic lesion. The liver, spleen, pancreas, gallbladder, and adrenal glands are normal. No small bowel obstruction. The appendix is normal. No evidence of acute diverticulitis. No adenopathy, free fluid, or free air is identified. The aorta is normal caliber. The osseous structures are intact. IMPRESSION: 1. 6 mm stone in the region of the proximal right ureter with mild right-sided inflammatory changes. 2. 3.8 cm probably benign right ovarian cyst. Recommend follow-up pelvic US in 6-12 weeks. Reference: J Am Cornelius Radiol 2013;10:675-681
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
[2019-09-01] MEDS ORDERED: ONDANSETRON 4 MG TAB.RAPDIS PO ONE (21:55)
[2019-09-01] MEDS ORDERED: TAMSULOSIN HCL 0.4 MG CAP.SR.24H PO ONE (21:55)
[2019-09-01] MEDS ORDERED: OXYCODONE-ACETAMINOPHEN 5-325 MG TABLET PO ONE (21:55)
[2019-09-01 22:09] VITALS: BP 142/78
== END 2019-09-01 22:10 | disposition home or self-care (01) ==
LOC: ER 18:53
DX: N20.1 Calculus of ureter (principal); N83.201 Unspecified ovarian cyst, right side; R10.9 Unspecified abdominal pain; R11.2 Nausea with vomiting, unspecified; M54.5 Low back pain; G89.29 Other chronic pain
CPT/HCPCS: 99284; 96372; 81025; 81001; 74176; J1885; S0119

== ENCOUNTER → 2020-07-26 | Outpatient (CLI) | payer BC ==
[2020-07-26 15:57] LABS: ABSOLUTE EOSINOPHILS # (AUTO) 0.1 10^3/uL (0.0-0.6); ABSOLUTE LYMPHOCYTES (AUTO) 2.5 10^3/uL (0.5-4.7); ABSOLUTE MONOCYTES (AUTO) 0.5 10^3/uL (0.1-1.4); ABSOLUTE NEUT (AUTO) 3.5 10^3/uL (1.7-8.2); BASOPHILS % (AUTO) 0.4 % (0-2); EOSINOPHILS % (AUTO) 1.4 % (0-6); HEMATOCRIT 37.8 % (36.0-47.0); HEMOGLOBIN 12.7 g/dL (12.0-15.5); LYMPHOCYTES % (AUTO) 37.1 % (13-45); MEAN CORPUSCULAR HEMOGLOBIN 27.8 pg (27.0-33.4); MEAN CORPUSCULAR HGB CONC 33.5 g/dL (32.0-36.0); MEAN CORPUSCULAR VOLUME 83 fl (80-97); PLATELET COUNT 223 10^3/uL (150-450); RED BLOOD COUNT 4.56 10^6/uL (3.72-5.28); RED CELL DISTRIBUTION WIDTH 12.3 % (11.5-14.0); SEGMENTED NEUTROPHILS % (AUTO) 53.1 % (42-78); TOTAL CELLS COUNTED % (AUTO) 100 %; WHITE BLOOD COUNT 6.7 10^3/uL (4.0-10.5)
[2020-07-26 16:16] LABS: ANION GAP 12 (5-19); BLOOD UREA NITROGEN 11 mg/dL (7-20); CARBON DIOXIDE 23 mmol/L (22-30); CHLORIDE 104 mmol/L (98-107); GLUCOSE 124 mg/dL (75-110); POTASSIUM 4.8 mmol/L (3.6-5.0)
[2020-07-26 16:22] LABS: INTERNATIONAL RATION (INR) 1.02; PROTHROMBIN TIME 13.6 SEC (11.4-15.4)
[2020-07-26 16:23] LABS: PARTIAL THROMBOPLASTIN TIME 28.3 SEC (23.5-35.8)
== END ==
LOC: OD 14:53
PROVIDERS: ATTEND Specialist
DX: E78.5 Hyperlipidemia, unspecified (principal); R94.31 Abnormal electrocardiogram [ECG] [EKG]; R07.9 Chest pain, unspecified; K21.9 Gastro-esophageal reflux disease without esophagitis; R01.1 Cardiac murmur, unspecified; I34.0 Nonrheumatic mitral (valve) insufficiency; Z79.899 Other long term (current) drug therapy
CPT/HCPCS: 36415; 80051; 82565; 82947; 83735; 84520; 85025; 85610; 85730

== ENCOUNTER 2020-12-09 06:54 | Emergency (ER) | payer BC ==
[2020-12-09] MEDS ORDERED: MORPHINE SULFATE 10 MG/ML INJ IV ONE ×2 (07:45→15:05)
[2020-12-09] MEDS ORDERED: FAMOTIDINE INJ/PF 20 MG/2 ML SDV IV ONE (07:45)
[2020-12-09] MEDS ORDERED: ONDANSETRON HCL INJ/PF 4 MG/2 ML SDV IV ONE ×2 (07:45→15:05)
[2020-12-09] MEDS ORDERED: NORMAL SALINE 1000 ML 1,000 ML IV ONE ×2 (07:45→15:05)
[2020-12-09 07:49] LABS: ABSOLUTE EOSINOPHILS # (AUTO) 0.1 10^3/uL (0.0-0.6); ABSOLUTE LYMPHOCYTES (AUTO) 2.1 10^3/uL (0.5-4.7); ABSOLUTE MONOCYTES (AUTO) 0.6 10^3/uL (0.1-1.4); ABSOLUTE NEUT (AUTO) 4.3 10^3/uL (1.7-8.2); BASOPHILS % (AUTO) 0.5 % (0-2); EOSINOPHILS % (AUTO) 1.2 % (0-6); HEMATOCRIT 38.2 % (36.0-47.0); HEMOGLOBIN 12.5 g/dL (12.0-15.5); LYMPHOCYTES % (AUTO) 29.3 % (13-45); MEAN CORPUSCULAR HEMOGLOBIN 26.9 pg (27.0-33.4); MEAN CORPUSCULAR HGB CONC 32.8 g/dL (32.0-36.0); MEAN CORPUSCULAR VOLUME 82 fl (80-97); MONOCYTES % (AUTO) 8.6 % (3-13); PLATELET COUNT 204 10^3/uL (150-450); RED BLOOD COUNT 4.66 10^6/uL (3.72-5.28); RED CELL DISTRIBUTION WIDTH 12.8 % (11.5-14.0); SEGMENTED NEUTROPHILS % (AUTO) 60.4 % (42-78); TOTAL CELLS COUNTED % (AUTO) 100 %; WHITE BLOOD COUNT 7.1 10^3/uL (4.0-10.5)
[2020-12-09 08:02] LABS: ALBUMIN 4.2 g/dL (3.5-5.0); ALKALINE PHOSPHATASE 80 U/L (38-126); ANION GAP 6 (5-19); ASPARTATE AMINO TRANSFERASE 24 U/L (14-36); BILIRUBIN,DIRECT 0.1 mg/dL (0.0-0.4); BLOOD UREA NITROGEN 12 mg/dL (7-20); CALCIUM 10.2 mg/dL (8.4-10.2); CARBON DIOXIDE 30 mmol/L (22-30); CHLORIDE 101 mmol/L (98-107); GLUCOSE 133 mg/dL (75-110); POTASSIUM 4.4 mmol/L (3.6-5.0); TOTAL PROTEIN 7.5 g/dL (6.3-8.2)
--- NOTE | 2020-12-09 08:20 | ER Document Report ---
Entered by JASON YIP SCRIBE 12/09/20 0736 Acting as scribe for:ASHER FAJARDO MD ED GI/ - General Chief Complaint: Abdominal Pain Stated Complaint: ABDOMINAL PAIN, VOMITING/NAUSEA Time Seen by Provider: 12/09/20 07:35 Primary Care Provider: LOPEZ MINAYA PA-C [Primary Care Provider] - Follow up as needed Mode of Arrival: Ambulatory Information source: Patient Notes: This 44 year old female patient presents to the ED today with complaints of periumbilical abdominal pain that started around 1000 yesterday morning. Patient notes associated nausea, vomiting, fatigue, and weakness. She reports a prior ventral hernia repair in 03/2017. Denies fever or diarrhea. Last bowel movement was x2 days ago, which is unusual for her. 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 Patient is currently on her menstrual period. TRAVEL OUTSIDE OF THE [place] IN LAST 30 DAYS: No - Related Data Allergies/Adverse Reactions: No Known Allergies Allergy (Verified 06/01/19 19:51) Home Medications: metoprolol 100mg qd Past Medical History - General Information source: Patient, [facility] Records - Social History Smoking Status: Never Smoker Cigarette use (# per day): No Chew tobacco use (# tins/day): No Smoking Education Provided: No Frequency of alcohol use: None Drug Abuse: None Lives with: Spouse/Significant other Family History: Reviewed & Not Pertinent Patient has suicidal ideation: No Patient has homicidal ideation: No - Past Medical History Cardiac Medical History: Reports: Hx Hypertension Renal/ Medical History: Reports: Hx Kidney Stones GI Medical History: Reports: Hx Gastroesophageal Reflux Disease Musculoskeletal Medical History: Reports Hx Musculoskeletal Deformity, Reports Hx Musculoskeletal Trauma Past Surgical History: Reports: Hx Abdominal Surgery, Hx Umbilical Hernia - Ventral hernia repair, 03/26/2017 - Immunizations Immunizations up to date: Yes Hx Diphtheria, Pertussis, Tetanus Vaccination: Yes Review of Systems - Review of Systems Constitutional: See HPI, Weakness, Other - Fatigue. denies: Fever EENT: No symptoms reported Cardiovascular: No symptoms reported Respiratory: No symptoms reported Gastrointestinal: See HPI, Abdominal pain, Nausea, Vomiting, Constipation, Last bowel movement - x2 days ago. denies: Diarrhea Genitourinary: No symptoms reported Female Genitourinary: No symptoms reported, Last menstrual period - now Musculoskeletal: No symptoms reported Skin: No symptoms reported Hematologic/Lymphatic: No symptoms reported Neurological/Psychological: No symptoms reported -: Yes All other systems reviewed and negative Physical Exam - Vital signs Vitals: Temp Pulse Resp BP Pulse Ox 97.9 F 55 L 16 129/66 H 100 12/09/20 07:00 12/09/20 07:00 12/09/20 07:00 12/09/20 07:00 12/09/20 07:00 - General General appearance: Other - Appears uncomfortable In distress: None - HEENT Head: Normocephalic, Atraumatic Eyes: Normal Extraocular movements intact: Yes Pupils: PERRL Neck: Normal, Supple - Respiratory Respiratory status: No respiratory distress Chest status: Nontender Breath sounds: Normal Chest palpation: Normal - Cardiovascular Rhythm: Regular Heart sounds: Normal auscultation Murmur: No - Abdominal Inspection: Normal Distension: No distension Tenderness: Tender - Tenderness to palpation mostly in the epigastrium. There is some RUQ tenderness. Organomegaly: No organomegaly Notes: Bowel sounds are present, but sound hollow. - Back Back: Normal, Nontender - Extremities General upper extremity: Normal inspection General lower extremity: Normal inspection. No: Edema - Neurological Neuro grossly intact: Yes Orientation: AAOx4 [place] Coma Scale Eye Opening: Spontaneous [place] Coma Scale Verbal: Oriented [place] Coma Scale Motor: Obeys Commands [place] Coma Scale Total: 15 - Psychological Associated symptoms: Normal affect, Normal mood - Skin Skin Temperature: Warm Skin Moisture: Dry Skin Color: Normal Course - Re-evaluation Re-evalutation: 12/09/20 15:06 The patient's acute abdominal series did not show any abnormalities other than moderate amount of stool. CBC Chem-12 and lipase are unremarkable. Urinalysis shows a a lot of blood, but the patient is on her menstrual period. There is no leukocyte esterase. Patient was given enema and did have a small amount of stool. It did not alter her discomfort. She was also given a bottle of mag citrate to drink which she later vomited back up. On reexam she had considerable epigastric tenderness after vomiting the mag citrate. She was given a dose of viscous lidocaine 15 ml with 60 mg of Maalox. This did not seem to alter her discomfort at all. Due to the inability to determine and explain why she is having such discomfort, and the amount of vascular calcification seen on her plain film, a CT scan of the abdomen pelvis with oral and IV contrast will be done. 12/09/20 16:14 When I asked the nurse how the patient was doing after receiving the pain medication nausea medicine, she states that she was still throwing up. I ordered Reglan IV. She is trying to drink the oral contrast. The patient was evaluated during the global COVID-19 pandemic and that diagnosis was suspected/considered upon their initial presentation. Their evaluation, treatment and testing was consistent with current guidelines for patients who present with complaints or symptoms that may be related to COVID-19. - Vital Signs Vital signs: Temp Pulse Resp BP Pulse Ox 97.9 F 55 L 16 129/66 H 100 12/09/20 07:04 12/09/20 07:00 12/09/20 07:00 12/09/20 07:00 12/09/20 07:00 - Laboratory Results Result Diagrams: 12/09/20 07:28 12/09/20 07:28 Laboratory Results Interpreted: 12/09/20 12/09/20 12/09/20 07:28 07:28 08:30 MCH 26.9 L Sodium 136.7 L Glucose 133 H Urine Protein 30 H Urine Blood LARGE H Urine Urobilinogen 4.0 H Ur Leukocyte Esterase TRACE H Urine Ascorbic Acid 40 H Critical Laboratory Results Reviewed: No Critical Results - Radiology Results Radiology Results Interpreted: 12/09/20 11:59 Abdominal ultrasound unremarkable. Acute abdominal series suggest constipation otherwise unremarkable. Critical Radiology Results Reviewed: No Critical Results - Transfer of Care Care transferred to following provider: Dr. Chairez Notes: 12/09/20 17:34 Patient history, physical, lab results, ultrasound and x-rays, response or lack thereof to treatment so far was reviewed. Patient is currently drinking contrast for a contrasted CT scan of the abdomen and pelvis. Patient care is turned over to Dr. Wells with disposition decisions dependent on the CT results. Discharge - Discharge Clinical Impression: Abdominal pain Qualifiers: Abdominal location: periumbilical Qualified Code(s): R10.33 - Periumbilical pain Vomiting Qualifiers: Vomiting type: unspecified Vomiting Intractability: non-intractable Nausea presence: with nausea Qualified Code(s): R11.2 - Nausea with vomiting, unspecified Condition: Stable Disposition: OTHER Referrals: LOPEZ MINAYA PA-C [Primary Care Provider] - Follow up as needed I personally performed the services described in the documentation, reviewed and edited the documentation which was dictated to the scribe in my presence, and it accurately records my words and actions.
[2020-12-09 08:53] LABS: APPEARANCE,URINE SLIGHTLY-CLOUDY; BILIRUBIN,URINE NEGATIVE (NEGATIVE); COLOR,URINE AMBER; GLUCOSE, URINE NEGATIVE (NEGATIVE); KETONES,URINE NEGATIVE (NEGATIVE); LEUKOCYTE ESTERASE,URINE TRACE (NEGATIVE); NITRITE,URINE NEGATIVE (NEGATIVE); PROTEIN,URINE 30 mg/dL (NEGATIVE)
--- NOTE | 2020-12-09 10:31 | RADIOLOGY REPORT (SQ) ---
EXAM DESCRIPTION: U/S ABDOMEN COMPLETE W/O DOP IMAGES COMPLETED DATE/TIME: 12/09/2020 10:15 am REASON FOR STUDY: epigastric, RUQ pain COMPARISON: 09/01/2019 TECHNIQUE: Dynamic and static grayscale images acquired of the abdomen and recorded on PACS. Additio nal selected color Doppler and spectral images recorded. Note: Study does not meet criteria for a complete doppler/duplex scan LIMITATIONS: None. FINDINGS: PANCREAS: No masses. Visualized pancreatic duct normal caliber. LIVER: Echotexture is coarse with increased echogenicity consistent with fatty infiltration. LIVER VASCULATURE: Normal directional flow of the main portal vein and hepatic veins. GALLBLADDER: No stones. Normal wall thickness. No pericholecystic fluid. ULTRASOUND-DETECTED SOUSA'S SIGN: Negative. INTRAHEPATIC DUCTS AND COMMON DUCT: CBD and intrahepatic ducts normal caliber. No filling defects. INFERIOR VENA CAVA: Normal flow. AORTA: No aneurysm. RIGHT KIDNEY: Normal size. Normal echogenicity. No solid or suspicious masses. No hydronephrosis. No calcifications. LEFT KIDNEY: Normal size. Normal echogenicity. No solid or suspicious masses. No hydronephrosis. No calcifications. SPLEEN:Normal size. No solid masses. PERITONEAL AND PLEURAL SPACES: No ascites or effusions. OTHER: Focused evaluation of the supraumbilical superficial soft tissues is unremarkable. IMPRESSION: FATTY LIVER. NO OTHER SIGNIFICANT FINDING. TECHNICAL DOCUMENTATION: JOB ID: [id number] 2010 [employer]- All Rights Reserved Reading location - IP/workstation name: [email or web address]
[2020-12-09] MEDS ORDERED: MINERAL OIL 30 ML UDCUP PR ONE (11:30)
[2020-12-09] MEDS ORDERED: MAGNESIUM CITRATE 296 ML BOTTLE PO ONE (11:30)
--- NOTE | 2020-12-09 11:38 | RADIOLOGY REPORT (SQ) ---
EXAM DESCRIPTION: ACUTE ABDOMEN SERIES IMAGES COMPLETED DATE/TIME: 12/09/2020 11:06 am REASON FOR STUDY: mid abd pain w/ N V COMPARISON: CT abdomen pelvis 09/01/2019, 04/30/2017 NUMBER OF VIEWS: Three views. TECHNIQUE: Frontal chest, supine abdomen and upright/decubitus abdomen radiographic images acquired. LIMITATIONS: None. FINDINGS: CHEST: Lungs clear of infiltrates. No pleural effusion. No pneumothorax. Borderline car diomegaly. FREE AIR: None. No abnormal gas collections. BOWEL GAS PATTERN: Nonobstructive pattern. No dilated loops or air fluid levels. CALCIFICATIONS: There are multiple retroperitoneal and pelvic phleboliths unchanged from CT 9. HARDWARE: None in the abdomen. SOFT TISSUES: No gross mass or suggestion of organomegaly. BONES: No acute fracture. No worrisome bone lesions. OTHER: No other significant finding. IMPRESSION: NO RADIOGRAPHIC EVIDENCE FOR ACUTE ABDOMINAL DISEASE. TECHNICAL DOCUMENTATION: JOB ID: [id number] 2010 [employer]- All Rights Reserved Reading location - IP/workstation name: [id number]
[2020-12-09] MEDS ORDERED: LIDOCAINE 2% VISCOUS SOLN 15 ML UDCUP PO ONE (14:08)
[2020-12-09] MEDS ORDERED: MAG HYDROX/AL HYDROX/SIMETH SUSP 30 ML UDCUP PO ONE (14:08)
[2020-12-09] MEDS ORDERED: METOCLOPRAMIDE HCL INJ/PF 10 MG/2 ML SDV IV ONE (16:12)
[2020-12-09] MEDS ORDERED: DIPHENHYDRAMINE HCL 50 MG/ML VIAL IV ONE (17:01)
[2020-12-09] MEDS ORDERED: CHLORPROMAZINE HCL INJ 25 MG/1 ML AMPULE IV ONE (17:01)
--- NOTE | 2020-12-09 19:02 | RADIOLOGY REPORT (SQ) ---
EXAM DESCRIPTION: CT ABD/PELVIS WITH IV ORAL IMAGES COMPLETED DATE/TIME: 12/09/2020 6:37 pm REASON FOR STUDY: Epigastric and periumbilical abdominal pain COMPARISON: CT abdomen pelvis 09/01/2019, 04/30/2017 TECHNIQUE: CT scan of the abdomen and pelvis performed using helical scanning technique with dynamic intravenous contrast injection. No oral contrast. Images reviewed with lung, soft tissue, and bone windows. Reconstructed coronal and sagittal MPR images reviewed. Delayed images for evaluation of the urinary system also acquired. All images stored on PACS. All CT scanners at this facility use dose modulation, iterative reconstruction, and/or weight based d osing when appropriate to reduce radiation dose to as low as reasonably achievable (ALARA). [facility]: Dose Right [facility]: CareDose [facility]: Dose Right [facility]: Teradose 4D [facility]: Behalf CONTRAST TYPE AND DOSE: contrast/concentration: Isovue 350.00 mmol/ml; Total Contrast Delivered: 100 .0 ml; Total Saline Delivered: 34.3 ml RENAL FUNCTION: Creatinine 0.9 RADIATION DOSE: CT Rad equipment meets quality standard of care and radiation dose reduction techniq ues were employed. CTDIvol: 9.8 - 13.8 mGy. DLP: 1371 mGy-cm.. LIMITATIONS: None. FINDINGS: LOWER CHEST: No significant findings. No nodules or infiltrates. LIVER: Normal size. No masses. No dilated ducts. SPLEEN: Normal size. No focal lesions. PANCREAS: No masses. No significant calcifications. No adjacent inflammation or peripancreatic fluid collections. Pancreatic duct not dilated. GALLBLADDER: No identified stones by CT criteria. No inflammatory changes to suggest cholecystitis. ADRENAL GLANDS: No significant masses or asymmetry. RIGHT KIDNEY AND URETER: No solid masses. No significant calcifications. No hydronephrosis or hyd roureter. LEFT KIDNEY AND URETER: No solid masses. No significant calcifications. No hydronephrosis or hydr oureter. AORTA AND VESSELS: No aneurysm. No dissection. Renal arteries, SMA, celiac without stenosis. RETROPERITONEUM: No retroperitoneal adenopathy, hemorrhage or masses. BOWEL AND PERITONEAL CAVITY: No masses or inflammatory changes. No free fluid or peritoneal masses. APPENDIX: Normal. PELVIS: There is a moderate amount of water density free pelvic fluid in the cul-de-sac, best shown o n axial images 73-79 and sagittal image 44. Uterus and ovaries grossly normal size. Findings called to Dr. Chairez in the emergency room. ABDOMINAL WALL: No masses. No hernias. BONES: No significant or acute findings. OTHER: No other significant finding. IMPRESSION: Moderate amount of cul-de-sac free fluid water density. Otherwise unremarkable CT scan of the abdomen pelvis with IV contrast TECHNICAL DOCUMENTATION: JOB ID: [id number] Quality ID # [id number]: Final reports with documentation of one or more dose reduction techniques (e.g., Au tomated exposure control, adjustment of the mA and/or kV according to patient size, use of iterative reconstruction technique) 2010 [employer]- All Rights Reserved Reading location - IP/workstation name: [email or web address]
[2020-12-09] MEDS ORDERED: ONDANSETRON ODT 4 MG TAB (6 TAB/ER DISP) PO PRN (20:10)
[2020-12-09] MEDS ORDERED: PROMETHAZINE HCL 25 MG SUPP (4 SUPP/ER DISP) PR ONE (20:10)
[2020-12-09] MEDS ORDERED: HYDROCODONE/ACETAMINOPHEN 5-325 MG (6 TAB/ER DISP) PO PRN (20:10)
[2020-12-09 20:44] VITALS: BP 118/65
== END 2020-12-09 20:51 | disposition home or self-care (01) ==
LOC: ER 06:54
DX: K59.00 Constipation, unspecified (principal); R18.8 Other ascites; K76.0 Fatty (change of) liver, not elsewhere classified; R10.84 Generalized abdominal pain; R10.816 Epigastric abdominal tenderness; R10.811 Right upper quadrant abdominal tenderness; R11.2 Nausea with vomiting, unspecified; R53.83 Other fatigue; R53.1 Weakness; I10 Essential (primary) hypertension; Z87.42 Personal history of other diseases of the female genital tract; Z87.19 Personal history of other diseases of the digestive system; Z79.899 Other long term (current) drug therapy; Z20.822 Contact with and (suspected) exposure to COVID-19
CPT/HCPCS: 96376; 99285; 96361; 96374; 96375; 36415; 83690; 85025; 0241U; 81025; 80053; 81001; 74022; 76700; 74177; J3230; J3490 ×4; J1200; J2765; J2270; J2405; J7030; S0028; C9803